=== PATIENT | male | born 1980 | race Caucasian/White ===

== ENCOUNTER → 2022-05-01 | Day surgery (SDC) | payer OTHER ==
[2022-05-01 17:50] VITALS: BP 133/80
== END | disposition home or self-care (01) ==
LOC: OR 13:50
PROVIDERS: ATTEND Internal Medicine Gastroenterology
DX: K62.5 Hemorrhage of anus and rectum (principal); K59.00 Constipation, unspecified; K64.8 Other hemorrhoids; Z71.3 Dietary counseling and surveillance; F41.9 Anxiety disorder, unspecified; Z01.810 Encounter for preprocedural cardiovascular examination; Z20.822 Contact with and (suspected) exposure to COVID-19; Z68.36 Body mass index [BMI] 36.0-36.9, adult; Z86.16 Personal history of COVID-19
CPT/HCPCS: 0223U; 36415; 45378; 93005